=== PATIENT | female | born 1985 | race Native Hawaiian/Other Pacific Islander ===

== ENCOUNTER 2018-10-01 14:31 | Outpatient (CLI) | payer OTHER | END 2018-10-01 19:17 | disposition home or self-care (01) | LOC: RAD 14:31 | DX: K42.0 Umbilical hernia with obstruction, without gangrene (principal) | CPT/HCPCS: Q9963 ==

== ENCOUNTER 2020-03-06 08:47 | Outpatient (CLI) | payer BC ==
[2020-03-06 09:17] LABS: PLATELET COUNT 323 K/uL (152-353)
== END 2020-03-06 22:24 | disposition home or self-care (01) ==
LOC: LABW 08:47
PROVIDERS: Nurse Practitioner
DX: R53.83 Other fatigue (principal); R00.2 Palpitations; R07.9 Chest pain, unspecified
CPT/HCPCS: 36415; 80053; 80061; 82306; 84443; 85027